=== PATIENT | male | born 1985 | race Caucasian/White ===

== ENCOUNTER 2020-07-27 04:39 | Emergency (ER) | payer BC ==
[2020-07-27] MEDS ORDERED: Lactated Ringers 1,000 ML IV ONE (04:52)
[2020-07-27] MEDS ORDERED: Ketorolac 30 MG/ML SDV IVPUSH ONE (04:52)
[2020-07-27] MEDS ORDERED: diphenhydrAMINE 50 MG/ML SDV IVPUSH ONE (04:52)
[2020-07-27] MEDS ORDERED: Metoclopramide 10 MG/2 ML SDV IVPUSH ONE (04:52)
--- NOTE | 2020-07-27 04:56 | EDM.PDOC ---
ED HPI GENERAL MEDICAL PROBLEM - General Stated Complaint: MIGRAINE Time Seen by Provider: 07/27/20 04:40 - History of Present Illness INITIAL COMMENTS - FREE TEXT/NARRATIVE: 35-year-old male with a history of migraines he has a prescription for sumatriptan. He typically gets a migraine once a month or maybe every 6 weeks. He has not had to present to the ER for refractory migraine for nearly 10 years. He had a minimal headache when he went to bed at 10 PM tonight woke up around an hour ago with a severe headache that is bilateral retro-orbital as well as occipital is associated with nausea and vomiting patient took 2 doses of triptan's as well as 400 mg of Motrin and a gram of Tylenol without improvement and so presents. He has some mild photophobia no phonophobia no difficulty walking the headache was not thunderclap no neck pain or stiffness no cough no fever no alleviating factors or other associated symptoms. Headache Pain Score (Numeric/FACES): 2 - Related Data Allergies Allergy/AdvReac Type Severity Reaction Status Date / Time No Known Allergies Allergy Verified 07/27/20 05:04 Home Meds: Home Meds . [Unable to Verify Home Med List] 07/27/20 [History] ED ROS GENERAL - Review of Systems Review Of Systems: See Below Free Text/Narrative/Comment: General: No fever. Skin: No rash. Eyes: No vision problems. ENT: No sore throat. Neck: No neck stiffness. Respiratory: No shortness of breath. Cardiac: No chest pain. Gastrointestinal: Per HPI Musculoskeletal: No myalgias/arthralgias. Neurologic: Per HPI ED EXAM, GENERAL - Physical Exam Exam: See Below Free Text/Narrative:: General Appearance: No acute distress, appears comfortable Skin: No rash HEENT: Normocephalic/atraumatic, sclera anicteric, mucous membranes moist Neck: Normal range of motion Chest and Lungs: Bilateral breath sounds, clear to auscultation Cardiovascular: Regular rate and rhythm, no murmur Abdomen: Soft, non-tender Back: Normal Musculoskeletal: No edema or tenderness Neurologic: Normal [id number] on the left, gait is normal, extraocular movements intact Psychiatric: Appropriate, cooperative Course - Vital Signs Last Recorded V/S: Last Vital Signs Temp 97.3 F 07/27/20 05:16 Pulse 67 07/27/20 05:16 Resp 16 07/27/20 05:16 BP 113/67 07/27/20 05:16 Pulse Ox 99 07/27/20 05:16 - Orders/Labs/Meds Orders: Active Orders 24 hr Category Date Time Status dexAMETHasone [Decadron] Med 07/27/20 06:24 Once 10 mg IVPUSH ONETIME ONE Medication Orders Dexamethasone (Decadron) 10 mg IVPUSH ONETIME ONE Stop: 07/27/20 06:25 Meds: Medications Generic Name Dose Route Start Last Admin Trade Name Freq PRN Reason Stop Dose Admin Dexamethasone 10 mg 07/27/20 06:24 Decadron IVPUSH 07/27/20 06:25 ONETIME ONE Discontinued Medications Generic Name Dose Route Start Last Admin Trade Name Freq PRN Reason Stop Dose Admin Diphenhydramine HCl 25 mg 07/27/20 04:52 07/27/20 05:11 Benadryl IVPUSH 07/27/20 04:53 25 mg ONETIME ONE Administration Lactated Ringer's 1,000 mls @ 999 mls/hr 07/27/20 04:52 07/27/20 05:06 Ringers, Lactated IV 07/27/20 05:52 999 mls/hr .BOLUS ONE Administration Ketorolac Tromethamine 15 mg 07/27/20 04:52 07/27/20 05:09 Toradol IVPUSH 07/27/20 04:53 15 mg ONETIME ONE Administration Metoclopramide HCl 10 mg 07/27/20 04:52 07/27/20 05:09 Reglan IVPUSH 07/27/20 04:53 10 mg ONETIME ONE Administration Departure - Departure Time of Disposition: 06:27 Disposition: Home, Self-Care 01 Condition: Good Clinical Impression: Migraine - Discharge Information *PRESCRIPTION DRUG MONITORING PROGRAM REVIEWED*: Not Applicable *COPY OF PRESCRIPTION DRUG MONITORING REPORT IN PATIENT JACOBO: Not Applicable Instructions: Migraine Headache Additional Instructions: The following information is given to patients seen in the emergency department who are being discharged to home. This information is to outline your options for follow-up care. We provide all patients seen in our emergency department with a follow-up referral. The need for follow-up, as well as the timing and circumstances, are variable depending upon the specifics of your emergency department visit. If you don't have a primary care physician on staff, we will provide you with a referral. We always advise you to contact your personal physician following an emergency department visit to inform them of the circumstance of the visit and for follow-up with them and/or the need for any referrals to a consulting specialist. The emergency department will also refer you to a specialist when appropriate. This referral assures that you have the opportunity for follow-up care with a specialist. All of these measure are taken in an effort to provide you with optimal care, which includes your follow-up. Under all circumstances we always encourage you to contact your private physician who remains a resource for coordinating your care. When calling for follow-up care, please make the office aware that this follow-up is from your recent emergency room visit. If for any reason you are refused follow-up, please contact the [facility] Emergency Department at and asked to speak to the emergency department charge nurse. Sepsis Event Note (ED) - Focused Exam Vital Signs: Vital Signs Temp Pulse Resp BP Pulse Ox 07/27/20 05:16 97.3 F 67 16 113/67 99 07/27/20 04:50 95.2 F L 76 16 143/96 H 96 - My Orders Last 24 Hours: My Active Orders 07/27/20 06:24 dexAMETHasone [Decadron] 10 mg IVPUSH ONETIME ONE - Assessment/Plan Last 24 Hours: My Active Orders 07/27/20 06:24 dexAMETHasone [Decadron] 10 mg IVPUSH ONETIME ONE Assessment:: 35-year-old male presented with signs and symptoms that are consistent with refractory migraine multiple other etiologies considered as well. Headache was not thunderclap there are no findings that suggest meningitis I do not have a clinical concern for subarachnoid hemorrhage, neurologic exam is normal. Given this would not CT scan given his prior history. Will provide a liter of lactated Ringer's Reglan Benadryl Toradol and reassess. Consider Decadron, or other additional medications as needed. 0630: PT's sx have essentially resolved. Headache now /10. Will give 10mg decadron for rebound prevention and patient discharged.
[2020-07-27] MEDS ORDERED: Dexamethasone 10 MG/ML SDV IVPUSH ONE (06:24)
== END 2020-07-27 06:44 | disposition home or self-care (01) ==
LOC: MW.ED 04:39
DX: G43.909 Migraine, unspecified, not intractable, without status migrainosus (principal)
CPT/HCPCS: 96374; 96375; 99283; J1100; J1200; J1885; J2765; J7120